=== PATIENT | male | born 1955 | race Caucasian/White ===

== ENCOUNTER 2018-12-28 11:56 | Emergency (ER) | payer OTHER ==
[~2018-12-28] VITALS: Ht 180.3 cm; Wt 79.4 kg
[~2018-12-28 11:56] MED LIST: CLONAZEPAM 1 MG1 M1 PO; CLONAZEPAM PO; CYMBALTA; FLEXERIL PO; FLOMAX0.4 MG PO; HYDROCHLOROTHIA25 M2 PO; HYDROCODONE-AP1 EAC6 PO; IBUPROFEN 800800 M1; IBUPROFEN 800800 M1 PO; LISINOPRIL; LISINOPRIL10 MG; NORCO 5-325 TA1 EAC1 PO; NORCO 5-325 TA1 EACH PO; PAXIL; PREDNISONE 10 M10 M1 PO; ROBAXIN500 MG PO; TAMSULOSIN HCL0.4 M1 PO; TRAMADOL 50 MG50 MG PO
[2018-12-28 11:57] VITALS: BP 181/87
[2018-12-28] MEDS ORDERED: NEURONTIN 300300 M1 PO (12:08)
[2018-12-28] MEDS ORDERED: DESYREL150 MG PO (12:09)
[2018-12-28] MEDS ORDERED: COREG25 MG PO (12:10)
== END 2018-12-28 12:24 | disposition home or self-care (01) ==
LOC: M.ERS 11:56
DX: I10 Essential (primary) hypertension (principal); F41.9 Anxiety disorder, unspecified; M48.061 Spinal stenosis, lumbar region without neurogenic claudication; M19.90 Unspecified osteoarthritis, unspecified site; Z98.890 Other specified postprocedural states; Z88.5 Allergy status to narcotic agent